=== PATIENT | female | born 1950 | race Caucasian/White ===

== ENCOUNTER 2021-11-25 15:27 | Emergency (ER) | payer MEDICARE, SELFPAY ==
--- NOTE | ~2021-11-25 | CT_ITS ---
EXAMINATION: CT brain wo con DATE: 11/25/2021 15:47 INDICATION: Dizziness. TECHNIQUE: Computed tomography (CT) of the head was performed without intravenous contrast. The mA wa s adjusted according to patient size. Iterative reconstruction technique was employed. The dose-lengt h product was 605.33 mGy-cm. COMPARISON: None FINDINGS: Posterolateral to left cerebellum, there is a 2.1 x 1.3 x 2.7 cm hyperdense extra-axial mas s, consistent with a meningioma. There are scattered areas of low attenuation in the cerebral white m atter, which is within normal limits for the patient's age. There is no acute ischemic infarct or int racranial hemorrhage. The ventricles are normal in size. There are likely changes of ocular lens repl acement surgeries. There is mild mucosal thickening in the paranasal sinuses. The mastoid air cells a re normal. IMPRESSION: 1. 2.1 cm hyperdense extra-axial mass posterolateral to left cerebellum, consistent with a meningioma . I called this result to Dr. Pastrana. Reviewed, dictated and finalized at location A. IMPRESSION: 1. 2.1 cm hyperdense extra-axial mass posterolateral to left cerebellum, consis tent with a meningioma. I called this result to Dr. Pastrana.
--- NOTE | ~2021-11-25 | XR_ITS ---
XR chest 1V portable 11/25/2021 16:11 Indication: Respiratory arrest. Stroke. Procedure: AP portable chest Comparison: No prior studies for comparison. Findings: Heart size normal. No focal air space disease, pulmonary edema, pleural effusion or suspect ed pneumothorax. There is a healed right sixth rib fracture. There is basilar atelectasis. No pneumot horax. No edema. Impression: 1: Basilar atelectasis. Reviewed, dictated and finalized at location A. Impression: 1: Basilar atelectasis.
--- NOTE | 2021-11-25 15:38 | ECG_ITS ---
Measurements Intervals [place] Rate: 64 P: 18 HI: 175 QRS: 1 QRSD: 93 T: 31 QT: 391 QTc: 406 Interpretive Statements SINUS RHYTHM RSR' V1 AND V2 BORDERLINE ECG NO PREVIOUS ECG AVAILABLE FOR COMPARISON Electronically Signed On 11-25-2021 17:10:16 CDT by Darci Savage M.D.
[2021-11-25 15:59] LABS: Glucose Point of Care 90 mg/dl (65-105)
--- NOTE | 2021-11-25 16:11 | ED.NEUROSD ---
HPI - Neuro Symptoms/Deficit General Chief Complaint: Neuro Symptoms/Deficit Stated Complaint: Dizzy, Off-Balance Time Seen by Provider: 11/25/21 15:39 History of Present Illness HPI Narrative: This is a 71-year-old female with a history of brain tumor status post [employer] treatment back in 2003 who presents emergency department with dizziness and loss of balance towards the left. Patient states the symptoms began quickly today are not associated with hearing loss or ringing in the ears and are not associated with any other loss of sensation, change/loss of vision. She states the symptoms are not similar to those that occurred when she originally began treatment for the tumor. Related Data Allergies Allergy/AdvReac Type Severity Reaction Status Date / Time No Known Allergies Allergy Verified 11/25/21 16:20 Review of Systems Review of Systems: CONSTITUTIONAL: Denies fever, chills, or sweats. EYES: Denies visual changes, redness, or discharge. ENT: Denies rhinorrhea, congestion, sore throat, or otalgia. CARDIOVASCULAR: Denies chest pain, palpitations, or edema. RESPIRATORY: Denies cough or dyspnea. GASTROINTESTINAL: Denies abdominal pain, nausea, vomiting, or diarrhea. GENITOURINARY: Denies dysuria or hematuria. SKIN: Denies rash or itching. MUSCULOSKELETAL: Denies back pain, joint pain, or myalgia. NEUROLOGIC: dizziness Denies headache, numbness, or weakness. PSYCHIATRIC: Denies anxiety or depression. [facility], [facility] Past Medical History Medical History (Updated 11/26/21 @ 00:28 by Bigg Pastrana MD) Hypertension Intracranial mass Social History Social History (Updated 11/26/21 @ 00:28 by Bigg Pastrana MD) Smoking status: Never smoker Alcohol intake: current Substance use: never Comments No significant past surgical or family history Exam Narrative: GENERAL: Well-appearing, well-nourished, and in no acute distress. HEAD: Normocephalic, atraumatic. EYES: PERRLA and EOMI. ENT: Nares clear, no rhinorrhea or epistaxis. Mucous membranes moist. Oropharynx without tonsillar hypertrophy exudate or other lesions. Bilateral TMs pearly gambino nonbulging NECK: Supple. No adenopathy or masses. No carotid bruits or JVD CHEST: Clear to auscultation. No respiratory distress. No wheezes rales or rhonchi HEART: Regular rate and rhythm. No murmur heard. Normal peripheral pulses. ABDOMEN: Soft, nontender, nondistended, normal active bowel sounds. EXTREMITIES: Normal range of motion. No edema. SKIN: Warm, dry, no rash. NEURO: No focal deficits. Alert and oriented x3. No noted ataxia, no noted nystagmus, hints exam negative, strength 5/5 in all extremities, sensation intact bilaterally PSYCH: Normal mood and affect. Course Course Emergency Course: 16:11 - NIHSS 0. HINTS exam not concerning for posterior stroke. CT Head demonstrates a left side meningioma. Discussed findings with Neurologist Dr. Juárez, who agrees, antithrombotics not indicated at this time. Will attempt to contact the patient's Neurosurgeon. 17:47 - Discussed patient with neurosurgical resident, Dr. Valero, at [facility] who agrees with plan for outpatient follow-up and will assist in scheduling the patient. Discussed the plan with the patient and her who voice understanding and comfort. Discussed return and emergency precautions including signs/symptoms of ischemia and intracranial hemorrhage. All questions answered to their satisfaction. Vital Signs Vital signs: Vital Signs Temperature 97.8 F 11/25/21 16:15 Pulse Rate 66 11/25/21 16:15 Respiratory Rate 14 11/25/21 16:15 Blood Pressure 180/92 H 11/25/21 16:15 Pulse Oximetry 99 11/25/21 16:15 Oxygen Delivery Room Air 11/25/21 16:15 Temperature 97.8 F 11/25/21 16:15 Pulse Rate 66 11/25/21 16:15 Respiratory Rate 14 11/25/21 16:15 Blood Pressure 180/92 H 11/25/21 16:15 Pulse Oximetry 99 11/25/21 16:15 Oxygen Delivery Room Air
[2021-11-25 16:15] VITALS: BP 180/92; PULSE 66; RESP 14; TEMP 36.6; O2SAT 99
[2021-11-25 16:24] LABS: Basophils Absolute Auto 0.1 K/mm3 (0.0-0.1); Basophils Percent Auto 0.8 % (0.2-1.2); Eosinophils Absolute Auto 0.2 K/mm3 (0-0.3); Eosinophils Percent Auto 2.3 % (0-4.4); Hematocrit 43.9 % (37.0-47.0); Hemoglobin 14.3 g/dL (12.0-15.0); Immature Granulocyte Absolute 0.02 K/mm3 (0.00-0.031); Immature Granulocyte Percent A 0.2 % (0-0.5); Lymphocytes Absolute Auto 3.92 K/mm3 (0.9-3.2); Lymphocytes Percent Auto 43.5 % (18.3-44.2); Mean Corpuscular HGB Conc 32.6 g/dl (32-36); Mean Corpuscular Hemoglobin 29.5 pg (26-34); Mean Corpuscular Volume 90.5 fl (80-100); Mean Platelet Volume 9.5 fl (7.4-10.4); Monocytes Absolute Auto 0.6 K/mm3 (0.1-0.6); Monocytes Percent Auto 6.3 % (2.6-8.5); Neutrophils Absolute Auto 4.2 K/mm3 (1.3-6.7); Neutrophils Percent Auto 46.9 % (45.5-73.1); Platelet Count Result 337 k/mm3 (150-375); Red Blood Count 4.85 M/mm3 (4.2-5.4); Red Cell Distribution Width 12.5 % (11.5-14.5)
[2021-11-25 16:35] LABS: Alanine Aminotransferase 25 U/L (6-35); Albumin Level 4.8 g/dL (3.5-5.1); Alkaline Phosphatase 50 U/L (38-126); Anion Gap 10 mmol/L (8-16); Aspartate Amino Transferase 32 U/L (14-36); Bilirubin,Total 0.4 mg/dL (0.2-1.3); Blood Urea Nitrogen 16 mg/dL (7-17); Calcium 9.6 mg/dL (8.4-10.2); Carbon Dioxide 27 mmol/L (22-30); Chloride 104 mmol/L (98-107); Estimated CRCL calculation 49 ml/min; Estimated Glomerular Filt Rate > 60; Glucose 102 mg/dL (65-110); INR 0.9; Potassium 3.9 mmol/L (3.4-5.0); Prothrombin Time 11.5 Seconds (11.1-14.7); Sodium 141 mmol/L (137-145)
[2021-11-25 16:36] LABS: Partial Thromboplastin Time 39.1 SECONDS (22.3-36.8)
[2021-11-25 16:47] LABS: Troponin I < 0.012 ng/mL (0.000-0.034)
[2021-11-25] MEDS: MECLIZINE HCL 25 MG TABLET PO (18:39)
== END 2021-11-25 19:11 | disposition home or self-care (01) ==
PROVIDERS: Emergency Provider Preventive Medicine Aerospace Medicine
DX: D32.0 Benign neoplasm of cerebral meninges (principal); R27.0 Ataxia, unspecified; I10 Essential (primary) hypertension
CPT/HCPCS: 36415; 70450; 71045; 80053; 82948; 84484; 85025; 85610; 85730; 93005; 99284; A9270